=== PATIENT | female | born 1950 | race Caucasian/White ===

== ENCOUNTER 2017-10-15 10:46 | Emergency (ER) | payer OTHER ==
[2017-10-15 10:53] VITALS: BP 140/81
--- NOTE | 2017-10-15 11:33 | EDPHY ---
H & P Time Seen by Provider: 10/15/17 11:20 HPI/ROS: CHIEF COMPLAINT: "I think I have UTI" HISTORY OF PRESENT ILLNESS: 67-year-old female visiting from [place], in [place] for 1 more month, history of diabetes, complaining of dysuria, foul- smelling urine, increased frequency for the past 2 days. Denies: Fever, chills , nausea, vomiting, back or flank pain, abdominal pain, flu-like symptoms REVIEW OF SYSTEMS: A ten point review of systems was performed and is negative with the exception of the items mentioned in the HPI PAST MEDICAL & SURGICAL HISTORY: Diabetes. Hypertension. Acromegaly. SOCIAL HISTORY: Nonsmoker. Visiting from [place]. PHYSICAL EXAM (Prior to examination, patient consented to physical exam, hands were washed and my usual and customary physical exam procedures followed) 1) GENERAL: Well-developed, well-nourished, alert and oriented. Appears to be in no acute distress. Smiling, shakes my hand, conversational. 2) HEAD: Normocephalic, atraumatic 3) HEENT: Pupils equal, round, reactive to light bilaterally. Sclera anicteric. [Nasopharynx, oropharynx, clear, no lesions. Moist mucous membranes 4) NECK: Full range of motion, no meningeal signs. 5) LUNGS: Clear auscultation bilaterally, no wheezes, no rhonchi, no retractions. 6) HEART: Regular rate and rhythm, no murmur, no heave, no gallop. 7) ABDOMEN: No guarding, no rebound, no focal tenderness, negative McBurney's, negative Martell's, negative Rovsing's, negative peritoneal sign, 8) MUSCULOSKELETAL: Moving all extremities, no focal areas of tenderness, no obvious trauma. No peripheral edema or discoloration. 9) BACK: No CVA tenderness 10) SKIN: No rash, no petechiae. 11) Psychiatric: Patient is oriented X 3, there is no agitation. DIFFERENTIAL DIAGNOSIS: In no particular order including but not limited to cystitis, pyelonephritis, urosepsis ] Smoking Status: Current every day smoker Constitutional: Initial Vital Signs Temperature (C) 37.1 C 10/15/17 10:51 Heart Rate 83 10/15/17 10:51 Respiratory Rate 18 10/15/17 10:51 Blood Pressure 140/81 H 10/15/17 10:51 O2 Sat (%) 93 10/15/17 10:51 O2 Delivery Mode Room Air Allergies/Adverse Reactions: nitrofurantoin [From Macrobid] Allergy (Verified 10/15/17 10:47) nitrofurantoin macrocrystalline [From Macrobid] Allergy (Verified 10/15/17 10:47 ) sulfamethoxazole [From Bactrim] Allergy (Verified 10/15/17 10:47) trimethoprim [From Bactrim] Allergy (Verified 10/15/17 10:47) Home Medications: Medication Instructions Recorded Aspirin 81mg (OTC) 05/24/14 Atorvastatin Calcium 05/24/14 Diovan 05/24/14 Lantus 100 UNITS/ML (RX) 05/24/14 Sertraline HCl 05/24/14 Wellbutrin Sr 05/24/14 Cephalexin [Keflex] 500 mg PO TID 7 Days cap 10/15/17 Diamox 10/15/17 Phenazopyridine HCl [Pyridium] 200 mg PO PC #10 tab 10/15/17 MDM/Departure - MDM ED Course/Re-evaluation: I feel the patient can be treated on an outpatient basis as I believe her to be a competent decision-maker, she shows no signs of urosepsis, she is afebrile. Nonetheless, I have provided acute urinary tract infection red flag signs and symptoms precautions, and reasons to return to the emergency department. She feels comfortable being discharged. The patient understands that this diagnosis is provisional and can never be 100% accurate. Usual and customary warnings were given concerning the clinical impression and all the patient's questions were answered. The patient was instructed to return to the emergency department should her symptoms worsen or return, or develop any new symptoms, otherwise to followup as directed in discharge instructions. - Depart Disposition: Home, Routine, Self-Care Clinical Impression: Cystitis Condition: Good Instructions: Urinary Tract Infection in Women (ED) Additional Instructions: Return to the ER immediately if you experience fevers/chills, flu like symptoms , inability to tolerate oral intake, nausea or vomiting, or any other symptoms that concern you. Prescriptions: Cephalexin [Keflex] 500 mg PO TID 7 Days cap Phenazopyridine HCl [Pyridium] 200 mg PO PC #10 tab Referrals: Nadira Gresham MD [[facility] [place] Primary Care Provider] - 1-2 days without fail
== END 2017-10-15 11:40 | disposition home or self-care (01) ==
DX: N30.90 Cystitis, unspecified without hematuria (principal); B96.20 Unspecified Escherichia coli [E. coli] as the cause of diseases classified elsewhere; E11.9 Type 2 diabetes mellitus without complications; I10 Essential (primary) hypertension; F17.200 Nicotine dependence, unspecified, uncomplicated; Z79.4 Long term (current) use of insulin; Z79.82 Long term (current) use of aspirin

== ENCOUNTER 2017-10-24 08:54 | Emergency (ER) | payer OTHER ==
--- NOTE | 2017-10-24 09:36 | EDPHY ---
HPI/HX/ROS/PE/MDM Narrative: CHIEF COMPLAINT: Rib pain secondary to fall HPI: The patient is a 67 y/o female with diabetes and COPD who is visiting from [place] and complains of rib pain secondary to a fall last night. She describes walking up stairs and then feeling that "I was going backwards" causing her to fall and slide down two stairs. She landed primarily on her right side and knees. She did strike her forehead on the ground as well. She denies loss of consciousness, antecedent symptoms, weakness, paresthesias. She complains of right-sided rib and flank pain and knee abrasions. She has been taking Tylenol for pain with slight alleviation. She does not use anticoagulants. REVIEW OF SYSTEMS: Aside from elements discussed in the HPI, a comprehensive 10-point review of systems was reviewed and is negative. PMH: Diabetes, COPD with CPAP at night, pituitary tumor resection SOCIAL HISTORY: Visiting from [place] for the last week. Retired. . PHYSICAL EXAM: General:Patient is alert, in no acute distress. Head: Small right forehead abrasion. ENT:Eyes are normal to inspection. ENT inspection normal. Neck: Normal inspection. Full range of motion. Respiratory:No respiratory distress. Breath sounds normal bilaterally. Cardiovascular: Regular rate and rhythm. Strong peripheral pulses. Normal cap refill. Abdomen:The abdomen is nontender to palpation. There are no peritoneal signs. Back: Normal to inspection. Diffuse right flank tenderness to palpation. Skin: Normal color. No rash. Warm and dry. Extremities: Abrasions to both knees and lower legs, otherwise normal appearance. Full range of motion. Neuro: Oriented x3. Normal motor function. Normal sensory function. ED Course: This is a 67 y/o female with diabetes and COPD who presents with right-sided flank pain, knee abrasions, and forehead abrasion secondary to a slip and fall down two stairs yesterday. She is neurovascularly intact. Plan for IV, labs, EKG , chest CT, and head CT. The 12 lead EKG was interpreted by myself. See hard copy and/or "tracemaster" electronic copy for interpretation. Chest CT: No acute trauma. Head CT: No acute trauma. - Data Points Laboratory Results: Laboratory Results 10/24/17 09:40 10/24/17 09:40 10/24/17 10/24/17 09:40 09:40 WBC 10.15 10^3/uL H 10^3/uL (3.80-9.50) RBC 4.72 10^6/uL 10^6/uL (4.18-5.33) Hgb 13.3 g/dL g/dL (12.6-16.3) Hct 39.0 % % (38.0-47.0) MCV 82.6 fL fL (81.5-99.8) MCH 28.2 pg pg (27.9-34.1) MCHC 34.1 g/dL g/dL (32.4-36.7) RDW 15.2 % % (11.5-15.2) Plt Count 263 10^3/uL 10^3/uL (150-400) MPV 9.5 fL fL (8.7-11.7) Neut % (Auto) 72.0 % % (39.3-74.2) Lymph % (Auto) 18.7 % % (15.0-45.0) [place] % (Auto) 7.3 % % (4.5-13.0) Eos % (Auto) 0.8 % % (0.6-7.6) Baso % (Auto) 0.6 % % (0.3-1.7) Nucleat RBC Rel Count 0.0 % % (0.0-0.2) Absolute Neuts (auto) 7.31 10^3/uL H 10^3/uL (1.70-6.50) Absolute Lymphs (auto) 1.90 10^3/uL 10^3/uL (1.00-3.00) Absolute Monos (auto) 0.74 10^3/uL 10^3/uL (0.30-0.80) Absolute Eos (auto) 0.08 10^3/uL 10^3/uL (0.03-0.40) Absolute Basos (auto) 0.06 10^3/uL 10^3/uL (0.02-0.10) Absolute Nucleated RBC 0.00 10^3/uL 10^3/uL (0-0.01) Immature Gran % 0.6 % % (0.0-1.1) Immature Gran # 0.06 10^3/uL 10^3/uL (0.00-0.10) Sodium 134 mEq/L L mEq/L (135-145) Potassium 4.5 mEq/L mEq/L (3.5-5.2) Chloride 97 mEq/L mEq/L (97-110) Carbon Dioxide 22 mEq/l mEq/l (22-31) Anion Gap 15 mEq/L mEq/L (8-16) BUN 18 mg/dL mg/dL (7-23) Creatinine 0.8 mg/dL mg/dL (0.6-1.0) Estimated GFR > 60 Glucose 141 mg/dL H mg/dL (70-100) Calcium 9.6 mg/dL mg/dL (8.5-10.4) Troponin I < 0.012 ng/mL ng/mL (0.000-0.034) General Time Seen by Provider: 10/24/17 09:15 Initial Vital Signs: Initial Vital Signs Temperature (C) 36.6 C 10/24/17 09:05 Heart Rate 79 10/24/17 09:05 Respiratory Rate 18 10/24/17 09:05 Blood Pressure 108/86 H 10/24/17 09:05 O2 Sat (%) 97 10/24/17 09:05 O2 Delivery Mode Room Air Allergies/Adverse Reactions: nitrofurantoin [From Macrobid] Allergy (Verified 10/24/17 09:05) nitrofurantoin macrocrystalline [From Macrobid] Allergy (Verified 10/24/17 09:05 ) sulfamethoxazole [From Bactrim] Allergy (Verified 10/24/17 09:05) trimethoprim [From Bactrim] Allergy (Verified 10/24/17 09:05) Home Medications: Medication Instructions Recorded Aspirin 81mg (OTC) 05/24/14 Atorvastatin Calcium 05/24/14 Diovan 05/24/14 Lantus 100 UNITS/ML (RX) 05/24/14 Sertraline HCl 05/24/14 Wellbutrin Sr 05/24/14 Cephalexin [Keflex] 500 mg PO TID 7 Days cap 10/15/17 Diamox 10/15/17 Phenazopyridine HCl [Pyridium] 200 mg PO PC #10 tab 10/15/17 Departure - Departure Disposition: Home, Routine, Self-Care Clinical Impression: Fall, Contusion of rib on right side, Head injury Condition: Good Instructions: Head Injury (ED), Rib Contusion (ED) Additional Instructions: Follow-up with your primary doctor within 72 hours. Return to the Emergency Department for fever, chest pain, shortness of breath, increasing pain or other worsening of condition. Referrals: Patient,NotPresent [Primary Care Provider] - As per Instructions Report Scribed for: Zechariah Alejo Report Scribed by: Erika Evangelista Date of Report: 10/24/17 Time of Report: 09:36 Physician Review and Approval Statement: Portions of this note were transcribed by an ED scribe. I personally performed the history, physical exam, and medical decision making; and confirm the accuracy of the information in the transcribed note.
--- NOTE | 2017-10-24 09:37 | CPEKG ---
Heart Rate: 76 RR Interval: 789 P-R Interval: 212 QRSD Interval: 96 QT Interval: 400 QTC Interval: 450 P Elmore: -72 QRS Elmore: 10 T Wave [place]: 46 EKG Severity - BORDERLINE ECG - EKG Impression: SINUS OR ECTOPIC ATRIAL RHYTHM EKG Impression: BORDERLINE T ABNORMALITIES, ANTERIOR LEADS Electronically Signed By: Nitesh Acuna 26-Oct-2017 08:58:44
[2017-10-24 09:51] LABS: PLATELET COUNT 263 10^3/uL (150-400)
[2017-10-24] MEDS ORDERED: IOPAMIDOL (ISOVUE-300) 100 ML BTL ONE (10:08)
[2017-10-24 11:41] VITALS: BP 135/79
== END 2017-10-24 11:39 | disposition home or self-care (01) ==
DX: S20.20XA Contusion of thorax, unspecified, initial encounter (principal); S09.90XA Unspecified injury of head, initial encounter; J44.9 Chronic obstructive pulmonary disease, unspecified; Z79.82 Long term (current) use of aspirin; W10.9XXA Fall (on) (from) unspecified stairs and steps, initial encounter; Y99.8 Other external cause status; Y93.01 Activity, walking, marching and hiking
CPT/HCPCS: 70450; 71260; 93005; 99285; Q9967

== ENCOUNTER 2017-10-29 13:52 | Emergency (ER) | payer OTHER ==
--- NOTE | 2017-10-29 14:38 | EDPHY ---
H & P Smoking Status: Current every day smoker Time Seen by Provider: 10/29/17 14:11 HPI/ROS: CHIEF COMPLAINT: Flank pain HISTORY OF PRESENT ILLNESS: 67-year-old female presents to the emergency department with severe right-sided flank pain. The patient fell on 10/24/2017 and was seen in the emergency department and had CT imaging of her head and chest. There is no evidence of rib fracture or pneumothorax. She states the following day, 10/25/2017 she had severe pain in her right flank which has continued. It is worse with movements. She is unable to lie flat. She has pain with deep breathing. She is also having some mild pain in the right side of her abdomen. No nausea or vomiting. She has been taking extra-strength Tylenol without relief. Denies worsening headache. Denies neck pain. Complains of right-sided mid back pain. REVIEW OF SYSTEMS: Constitutional: No fever, no chills. Eyes: No double or blurry vision. ENT: No sore throat. Respiratory: No cough, no shortness of breath. Cardiac: No chest pain. Gastrointestinal: Right-sided abdominal pain. No vomiting or diarrhea Genitourinary: No dysuria. Musculoskeletal: Back pain as above. No neck pain. Skin: No rashes. Neurological: No headache. (Mary Beth Britt) Past Medical/Surgical History: Hypertension, pituitary tumor removal, kidney surgery, acromegaly, hernia repair (Mary Beth Britt) Social History: , visiting from [place] (Mary Beth Britt) Physical Exam: General Appearance: Alert, no distress. Mentating normally and answering questions appropriately. Eyes: Pupils equal and round. Extraocular motions are all intact. ENT: Mouth: Mucous membranes moist. Respiratory: No wheezing, rhonchi, or rales, lungs are clear to auscultation. Cardiovascular: Regular rate and rhythm. Gastrointestinal: Patient has mild pain with palpation in the right upper quadrant. There is no masses, rebound or guarding noted. She has pain with palpation in the right CVA area as well as just superior to the right CVA area overlying the right lateral mid ribs. Neurological: Alert and oriented x 3, cranial nerves II through XII grossly intact Skin: Warm and dry, no rashes. Musculoskeletal: Very mild pain with palpation in the mid to lower thoracic spine she. Nontender to palpate over the cervical or lumbar spine. Extremities: Full range of motion and no peripheral edema. Psychiatric: Patient is oriented X 3, there is no agitation. (Mary Beth Britt) Constitutional: Initial Vital Signs Temperature (C) 36.7 C 10/29/17 13:59 Heart Rate 83 10/29/17 13:59 Respiratory Rate 19 10/29/17 13:59 Blood Pressure 143/77 H 10/29/17 13:59 O2 Sat (%) 94 10/29/17 13:59 O2 Delivery Mode Room Air Allergies/Adverse Reactions: nitrofurantoin [From Macrobid] Allergy (Verified 10/29/17 13:58) nitrofurantoin macrocrystalline [From Macrobid] Allergy (Verified 10/29/17 13:58 ) sulfamethoxazole [From Bactrim] Allergy (Verified 10/29/17 13:58) trimethoprim [From Bactrim] Allergy (Verified 10/29/17 13:58) Home Medications: Medication Instructions Recorded Aspirin 81mg (OTC) 05/24/14 Atorvastatin Calcium 05/24/14 Diovan 05/24/14 Lantus 100 UNITS/ML (RX) 05/24/14 Sertraline HCl 05/24/14 oxyCODONE IR [Oxycodone Ir (*)] 5 mg PO Q4-6PRN PRN #20 tab 10/29/17 Medical Decision Making - Diagnostics Imaging: Discussed imaging studies w/ call center receptionist Radiologist - Diagnostics Imaging Results: Imaging Impressions Abdomen CT 10/29/17 15:10 Impression: 1. No evidence of abdominal or pelvic lacerations, hematomas, or free fluid. 2. Cholelithiasis with possible gallbladder sludge or mass. Recommend ultrasound gallbladder. 3. Lipomatous hypertrophy over the intra-atrial septum without pericardial effusion or pleural effusion. 4. No definite lower rib fractures. 5. Sigmoid diverticulosis without diverticulitis. 6. Atherosclerotic aorta and iliac arteries without aneurysm. 7. Bilateral renal cortical scarring and multiple cysts without laceration. 8. Degenerative lumbar spine resulting in moderate to severe stenosis as described above. Findings and recommendations discussed with Emergency Department physician, Mary Beth Britt at 1605 hour, 10/29/2017. Final report concurs with initial preliminary interpretation. Abdomen Ultrasound 10/29/17 16:23 Impression: 1. Numerous granular gallstones and sludge within the gallbladder without secondary findings of cholecystitis. Clinical follow-up suggested. 2. Gallbladder polyps also identified along the gallbladder wall. 3. Cyst documented off the lower pole right kidney. The additional presumed cysts on earlier CT study involving the right kidney were not delineated with ultrasound. These findings were discussed by telephone with Dr. Paco Palma at 17:28 hour , 10/29/2017. ED Course/Re-evaluation: 67-year-old female presents to the emergency department with right flank pain. The patient reports trauma nearly 1 week ago. She had CT imaging of her chest however not of her abdomen and pelvis. CT imaging of the abdomen and pelvis reveals no evidence of rib fracture or or free fluid in her pelvis. She did however have evidence of sludge and possible mass in her gallbladder. Laboratory studies reveal white blood cell count of 9.7. Liver function tests are normal. The case was discussed with Dr. Paco Palma, secondary supervising physician, who will assume care of this patient at 5:00 p.m., shift change. Gallbladder ultrasound is pending. (Mary Beth Britt) Differential Diagnosis: Including but not limited to rib fracture, intra-abdominal injury, pneumothorax , muscular spasm, contusion (Mary Beth Britt) Other Provider: 1730: US shows cholelithiasis without evidence of cholecystitis. Reassessed patient and discussed results. Patient plans to follow up with her doctor in [place] regarding her gallbladder. (Paco Palma) - Data Points Laboratory Results: Laboratory Results 10/29/17 14:38 10/29/17 14:38 10/29/17 10/29/17 10/29/17 14:45 14:38 14:38 WBC 9.73 10^3/uL H 10^3/uL (3.80-9.50) RBC 4.77 10^6/uL 10^6/uL (4.18-5.33) Hgb 13.3 g/dL g/dL (12.6-16.3) POC Hgb 14.3 gm/dL gm/dL (12.6-16.3) Hct 39.5 % % (38.0-47.0) POC Hct 42 % % (38-47) MCV 82.8 fL fL (81.5-99.8) MCH 27.9 pg pg (27.9-34.1) MCHC 33.7 g/dL g/dL (32.4-36.7) RDW 15.0 % % (11.5-15.2) Plt Count 291 10^3/uL 10^3/uL (150-400) MPV 9.8 fL fL (8.7-11.7) Neut % (Auto) 66.8 % % (39.3-74.2) Lymph % (Auto) 26.1 % % (15.0-45.0) [place] % (Auto) 4.9 % % (4.5-13.0) Eos % (Auto) 0.9 % % (0.6-7.6) Baso % (Auto) 0.9 % % (0.3-1.7) Nucleat RBC Rel Count 0.0 % % (0.0-0.2) Absolute Neuts (auto) 6.49 10^3/uL 10^3/uL (1.70-6.50) Absolute Lymphs (auto) 2.54 10^3/uL 10^3/uL (1.00-3.00) Absolute Monos (auto) 0.48 10^3/uL 10^3/uL (0.30-0.80) Absolute Eos (auto) 0.09 10^3/uL 10^3/uL (0.03-0.40) Absolute Basos (auto) 0.09 10^3/uL 10^3/uL (0.02-0.10) Absolute Nucleated RBC 0.00 10^3/uL 10^3/uL (0-0.01) Immature Gran % 0.4 % % (0.0-1.1) Immature Gran # 0.04 10^3/uL 10^3/uL (0.00-0.10) POC Sodium 130 mEq/L L mEq/L (135-145) Sodium 131 mEq/L L mEq/L (135-145) POC Potassium 4.7 mEq/L mEq/L (3.3-5.0) Potassium 5.4 mEq/L H mEq/L (3.3-5.0) POC Chloride 95 mEq/L L mEq/L (97-110) Chloride 96 mEq/L L mEq/L (97-110) Carbon Dioxide 23 mEq/l mEq/l (22-31) Anion Gap 12 mEq/L mEq/L (8-16) POC BUN 19 mg/dL mg/dL (7-23) BUN 19 mg/dL mg/dL (7-23) Creatinine 0.8 mg/dL mg/dL (0.6-1.0) POC Creatinine 1.0 mg/dL mg/dL (0.6-1.0) Estimated GFR > 60 Glucose 98 mg/dL mg/dL (70-100) POC Glucose 109 mg/dL H mg/dL (70-100) Calcium 10.5 mg/dL H mg/dL (8.5-10.4) Total Bilirubin 0.7 mg/dL mg/dL (0.1-1.4) Conjugated Bilirubin 0.5 mg/dL mg/dL (0.0-0.5) Unconjugated Bilirubin 0.2 mg/dL mg/dL (0.0-1.1) AST 37 IU/L IU/L (14-46) ALT 40 IU/L IU/L (9-52) Alkaline Phosphatase 60 IU/L IU/L (38-126) Total Protein 7.7 g/dL g/dL (6.3-8.2) Albumin 4.7 g/dL g/dL (3.5-5.0) Medications Given: Discontinued Medications Hydromorphone HCl (Dilaudid) 0.5 mg IVP EDNOW ONE Stop: 10/29/17 14:50 Last Admin: 10/29/17 14:53 Dose: 0.5 mg Point of Care Test Results: 10/29/17 14:45 POC Sodium 130 L POC Potassium 4.7 POC Chloride 95 L POC BUN 19 POC Creatinine 1.0 POC Glucose 109 H Departure - Departure Disposition: Home, Routine, Self-Care Clinical Impression: Right flank pain Cholelithiases Qualifiers: Cholelithiasis location: gallbladder Cholecystitis presence: without cholecystitis Biliary obstruction: without biliary obstruction Qualified Code(s) : K80.20 - Calculus of gallbladder without cholecystitis without obstruction Condition: Good Instructions: Gallstones (ED), Flank Pain (ED) Additional Instructions: Use OxyIR as prescribed as needed for severe pain, this medication can make you drowsy so do not use prior to driving. Follow up with your doctor in [place] upon your return home. Return to the ED for any worsening of condition. Referrals: Daryl Layne MD [Medical Doctor] - As per Instructions (On-call general surgeon) Prescriptions: oxyCODONE IR [Oxycodone Ir (*)] 5 mg PO Q4-6PRN PRN #20 tab PRN Reason: Pain, Moderate
[2017-10-29] MEDS ORDERED: HYDROmorphONE/DILAUDID 1 MG/ML INJ IVP ONE (14:49)
[2017-10-29] MEDS ORDERED: IOPAMIDOL (ISOVUE-300) 100 ML BTL ONE (15:20)
[2017-10-29 15:42] LABS: PLATELET COUNT 291 10^3/uL (150-400)
[2017-10-29 17:47] VITALS: BP 138/84
== END 2017-10-29 17:47 | disposition home or self-care (01) ==
DX: K80.20 Calculus of gallbladder without cholecystitis without obstruction (principal); I10 Essential (primary) hypertension; F17.200 Nicotine dependence, unspecified, uncomplicated; Z79.4 Long term (current) use of insulin; Z79.82 Long term (current) use of aspirin
CPT/HCPCS: 74177; 76705; 96374; 99285; J1170; Q9967; 82947-QW